=== PATIENT | female | born 1985 | race Caucasian/White ===

== ENCOUNTER 2020-06-10 20:56 | Emergency (ER) | payer MEDICAID ==
[~2020-06-10] VITALS: Ht 160 cm; Wt 59.1 kg
[~2020-06-10 20:56] MED LIST: ALBU6.7H9 INH; CYCL-1 PO; METH-797 PO; METH4TAB3 PO; NAPR-1154 PO
--- NOTE | 2020-06-10 22:15 | NUR ---
PATIENT WORKS WITH ANIMALS AND THE PUBLIC. PATIENT STARTED OUT THURSDAY WITH RUNNY NOSE AND NON PRODUCTIVE COUGH AND SHE FEELS SHE IS GETTING WORSE. SHE STATES THAT HER LUNGS FEEL LIKE HEY ARE HOT WITH A DEEP BREATH. LUNGS CL AND RR EVEN AND UNLABORED [id number] ON RA. INVESTMENT SALES ASSISTANT WNL . STRONG REGULAR PULSES BILATERALLY RADIAL
[2020-06-10 22:30] VITALS: BP 138/76
== END 2020-06-10 22:35 | disposition home or self-care (01) ==
LOC: ER 20:58
DX: R05 Cough (principal); Z20.822 Contact with and (suspected) exposure to COVID-19; R09.81 Nasal congestion; R50.9 Fever, unspecified; R07.89 Other chest pain; G89.29 Other chronic pain; Z98.891 History of uterine scar from previous surgery; Z79.899 Other long term (current) drug therapy; Z88.6 Allergy status to analgesic agent
CPT/HCPCS: 36415; 99283; U0003